=== PATIENT | male | born 1960 | race Caucasian/White ===

== ENCOUNTER 2017-03-15 16:52 | Emergency (ER) | payer OTHER ==
[~2017-03-15] VITALS: Ht 170.2 cm; Wt 150.0 kg
[~2017-03-15 16:52] MED LIST: NAPR550 PO; Z.0.NO CURRENT MEDS
[2017-03-15 16:55] VITALS: BP 155/85; RESP 17; TEMP 98.2; O2SAT 95
[2017-03-15] MEDS ORDERED: ACETAMINOPHEN/HYDROcodone 325 MG/5 MG TAB PO ONE (17:00)
[2017-03-15] MEDS ORDERED: IBUPROFEN 600 MG TAB PO ONE (17:00)
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
[2017-03-15 18:16] VITALS: BP 154/76
== END 2017-03-15 18:17 | disposition home or self-care (01) ==
LOC: NEPC 16:52
DX: R51 Headache (principal); M10.9 Gout, unspecified; V43.52XA Car driver injured in collision with other type car in traffic accident, initial encounter
CPT/HCPCS: 99283